=== PATIENT | male | born 1995 | race Caucasian/White ===

== ENCOUNTER 2024-04-29 22:22 | Emergency (ER) | payer BC ==
[~2024-04-29] VITALS: Ht 170.2 cm; Wt 55.0 kg
[2024-04-29 22:31] VITALS: O2SAT 100
[2024-04-29 23:09] VITALS: BP 114/65; PULSE 74; RESP 16; TEMP 98.2; O2SAT 100
== END 2024-04-29 23:29 | disposition left against medical advice (07) ==
LOC: ER 22:22
DX: R55 Syncope and collapse (principal); M25.561 Pain in right knee; F17.210 Nicotine dependence, cigarettes, uncomplicated; Z53.21 Procedure and treatment not carried out due to patient leaving prior to being seen by health care provider
CPT/HCPCS: 93005